=== PATIENT | male | born 1955 | race Caucasian/White ===

== ENCOUNTER 2021-02-04 23:25 | Inpatient (IN) | payer MEDICARE, MEDICAID ==
[~2021-02-04] VITALS: Ht 177.8 cm; Wt 63.5 kg
[2021-02-05] MEDS ORDERED: IPRATROPIUM BROM 0.5 MG/2.5ML INH SOL NEB ONE (01:45)
[2021-02-05] MEDS ORDERED: ALBUTEROL SULF 2.5 MG/0.5ML(0.5%) NEB SOLN NEB ONE (01:45)
[2021-02-05] MEDS ORDERED: LORazepam 0.5 MG TAB PO ONE (01:45)
[2021-02-05] MEDS ORDERED: DexAMETHasone SOD PHOS 10MG/1ML VIAL INJ IM ONE (01:45)
[2021-02-05 02:13] LABS: Basophils # (auto) 0 10 ^3/uL (0-0.2); Basophils % (auto) 0.2 % (0.0-2.0); Eosinophils # (auto) 0 10 ^3/uL (0-0.8); Hematocrit 48.6 % (41.0-53.0); Hemoglobin 16.5 g/dL (13.5-17.5); Lymphocytes # (auto) 1.5 10 ^3/uL (0.4-5.4); Mean Corpuscular Hemoglobin 30.2 pg (28.0-32.0); Mean Corpuscular Hgb Conc. 33.9 g/dL (32.0-36.0); Monocytes # (auto) 1.4 10 ^3/uL (0-1.3); Monocytes % (auto) 7.7 % (0.0-12.0); Neutrophils # (auto) 15.4 10 ^3/uL (1.6-8.6); Neutrophils % (auto) 84.1 % (37.0-80.0); Nucleated Red Blood Cells % 0.2 %; Platelet Count (auto) 251 10^3/uL (140-450); Red Blood Cells 5.46 10^6/uL (4.5-5.90); Red Cell Distribution Width 15.5 % (11.8-14.3); White Blood Cell 18.4 10^3/uL (4.4-10.8)
[2021-02-05 02:19] LABS: Albumin 3.1 g/dL (3.4-5.0); BUN/Creatinine Ratio 28.8; Calcium 9.3 mg/dL (8.5-10.1); Magnesium 2.6 mg/dL (1.6-2.6); Potassium 5.1 mmol/L (3.5-5.1)
[2021-02-05 02:25] LABS: Bilirubin, Total 1.8 mg/dL (0.2-1.0); Total Protein 7.7 g/dL (6.4-8.2)
[2021-02-05 02:33] LABS: INR 3.22 (0.9-1.15); Partial Thromboplastin Time 30.8 sec (23.0-31.2)
[2021-02-05] MEDS ORDERED: PIPERACILLIN-TAZOB 3.375GM 100 ML IV ONE (04:45)
[2021-02-05 06:00] LABS: Alcohol, Urine < 3.0 mg/dL (0-10); Amphetamine Screen, Urine POSITIVE (NEGATIVE); Barbiturate Scree,Urine NEGATIVE (NEGATIVE); Benzodiazephine Screen, Urine NEGATIVE (NEGATIVE); Cannabinoid Screen, Urine POSITIVE (NEGATIVE); Cocaine Screen, Urine NEGATIVE (NEGATIVE); Phencyclidine Screen, Urine NEGATIVE (NEGATIVE)
[2021-02-05 06:08] LABS: Opiate Scree,Urine POSITIVE (NEGATIVE)
[2021-02-05] MEDS ORDERED: HYDROcodone-ACET 5/325MG TAB PO PRN (06:30)
[2021-02-05] MEDS ORDERED: MORPHINE SULFATE 4 MG/ML SYR/VIAL IV PRN (06:30)
[2021-02-05] MEDS ORDERED: NITROGLYCERIN 0.4 MG SL TAB SL PRN (06:30)
[2021-02-05] MEDS ORDERED: ALBUTEROL SULF 2.5 MG/0.5ML(0.5%) NEB SOLN NEB PRN (06:30)
[2021-02-05] MEDS ORDERED: MORPHINE SULF INJ 2 MG/ML SYRINGE 1ML IV PRN (06:30)
[2021-02-05] MEDS ORDERED: ACETAMINOPHEN 325 MG TAB PO PRN (06:30)
[2021-02-05] MEDS ORDERED: ONDANSETRON HCL 4 MG/2 ML VIAL IV PRN (06:30)
[2021-02-05] MEDS ORDERED: DOCUSATE SOD 100 MG CAP PO PRN (06:30)
[2021-02-05] MEDS ORDERED: IPRATROPIUM BROM 0.5 MG/2.5ML INH SOL NEB PRN (06:45)
[2021-02-05 07:15] VITALS: BP 96/62
[2021-02-05 08:17] VITALS: BP 96/63
[2021-02-05 08:24] LABS: Basophils # (auto) 0 10 ^3/uL (0-0.2); Basophils % (auto) 0.2 % (0.0-2.0); Eosinophils # (auto) 0 10 ^3/uL (0-0.8); Hematocrit 48.7 % (41.0-53.0); Hemoglobin 16.1 g/dL (13.5-17.5); Lymphocytes # (auto) 0.7 10 ^3/uL (0.4-5.4); Lymphocytes % (auto) 6.4 % (10.0-50.0); Mean Corpuscular Hemoglobin 29.8 pg (28.0-32.0); Mean Corpuscular Hgb Conc. 33.1 g/dL (32.0-36.0); Monocytes # (auto) 0.3 10 ^3/uL (0-1.3); Neutrophils # (auto) 10.1 10 ^3/uL (1.6-8.6); Neutrophils % (auto) 90.4 % (37.0-80.0); Nucleated Red Blood Cells % 0.1 %; Platelet Count (auto) 287 10^3/uL (140-450); Red Blood Cells 5.41 10^6/uL (4.5-5.90); Red Cell Distribution Width 15.9 % (11.8-14.3); White Blood Cell 11.2 10^3/uL (4.4-10.8)
[2021-02-05 08:53] LABS: Alanine Aminotransferase 27 U/L (16-61); Anion Gap 13 (5-15); Aspartate Aminotransferase 35 U/L (15-37); BUN/Creatinine Ratio 34.1; Blood Urea Nitrogen 31 mg/dL (7-18); Calcium 8.7 mg/dL (8.5-10.1); Carbon Dioxide 19 mmol/L (21-32); Chloride 102 mmol/L (98-107); GFR African American 107 mL/min; GFR Non-African American 89 mL/min; Glucose 141 mg/dL (74-106); Potassium 3.9 mmol/L (3.5-5.1); Sodium 134 mmol/L (136-145)
[2021-02-05 08:55] LABS: Alkaline Phosphatase 80 U/L (45-117); Bilirubin, Total 1.6 mg/dL (0.2-1.0)
[2021-02-05] MEDS ORDERED: cefTRIAXone 1GM/50ML D5W 50 ML IV SCH (09:00)
[2021-02-05] MEDS ORDERED: HEPARIN SODIUM (PORCINE) 5000 UNITS/ML 1ML VIAL SC SCH (10:00)
[2021-02-05] MEDS ORDERED: MULTIPLE VITAMIN TAB PO SCH (10:00)
[2021-02-05] MEDS ORDERED: ASCORBIC ACID 500 MG TAB PO SCH (10:00)
[2021-02-05] MEDS ORDERED: ZINC SULFATE 220mg CAP or TAB PO SCH (10:00)
[2021-02-05] MEDS ORDERED: FAMOTIDINE (10MG/ML) 2ML VL IV SCH (10:00)
[2021-02-05] MEDS ORDERED: AZITHROMYCIN 500MG/ 250ML 250 ML IV SCH (10:00)
[2021-02-05] MEDS ORDERED: EPINEPHrine HCL 1 MG/10 ML SYRG IV ONE (14:03)
[2021-02-05] MEDS ORDERED: FUROSEMIDE 20 MG/2 ML VIAL IV SCH (18:00)
[2021-02-05] MEDS ORDERED: ENOXAPARIN SOD 60 MG/0.6 ML SYRINGE SC SCH (22:00)
== END 2021-02-05 12:25 ==
LOC: ER 23:25 → EDBD 23:25 → TELE 02-05 06:26 → TELE-WESTW 02-05 10:28
PROVIDERS: ADMIT Internal Medicine; ATTEND Internal Medicine
PROC: 0BH17EZ Insertion of Endotracheal Airway into Trachea, Via Natural or Artificial Opening (ICD-10-PCS; principal; 2021-02-05)
PROC: 5A12012 Performance of Cardiac Output, Single, Manual (ICD-10-PCS; 2021-02-05)
DX: I11.0 Hypertensive heart disease with heart failure (principal); I21.A1 Myocardial infarction type 2; J18.9 Pneumonia, unspecified organism; J44.0 Chronic obstructive pulmonary disease with (acute) lower respiratory infection; I50.41 Acute combined systolic (congestive) and diastolic (congestive) heart failure; Z20.822 Contact with and (suspected) exposure to COVID-19; E78.00 Pure hypercholesterolemia, unspecified; E78.5 Hyperlipidemia, unspecified; E87.5 Hyperkalemia; F15.90 Other stimulant use, unspecified, uncomplicated; R73.9 Hyperglycemia, unspecified; F10.10 Alcohol abuse, uncomplicated; Y90.9 Presence of alcohol in blood, level not specified; F17.200 Nicotine dependence, unspecified, uncomplicated; F19.10 Other psychoactive substance abuse, uncomplicated; I46.9 Cardiac arrest, cause unspecified; Z86.12 Personal history of poliomyelitis
CPT/HCPCS: 36415; 36600; 71045; 80053; 80307; 80320; 82805; 83036; 83735; 83880; 84484; 85025; 85610; 85730; 87040; 87426; 93005; 94644; 96365; 96366; 96367; G0378; J0696; J1100; J2543; J3490